=== PATIENT | male | born 1950 | race Caucasian/White ===

== ENCOUNTER 2024-04-09 13:15 | Emergency (ER) | payer OTHER ==
[~2024-04-09] VITALS: Ht 162.6 cm; Wt 73.0 kg
[2024-04-09 13:28] VITALS: O2SAT 98
[2024-04-09 14:25] LABS: BASOPHILS % 1.1 % (0.0-2.0); EOSINOPHILS % 3.4 % (0.0-5.0); HEMATOCRIT. 38.2 % (42.0-52.0); HEMOGLOBIN. 12.2 g/dL (14.0-18.0); LYMPHOCYTES % 21.3 % (20.0-50.0); MEAN CORPUSCULAR HEMOGLOBIN 27.6 pg (28.0-32.0); MEAN CORPUSCULAR HGB CONC 31.9 g/dL (31.0-37.0); MEAN CORPUSCULAR VOLUME 86.3 fL (80.0-94.0); MEAN PLATELET VOLUME 8.7 fl (7.4-10.4); NEUTROPHILS % 65.2 % (40.0-76.0); PLATELET 305 x1000/uL (130-400); RED BLOOD CELL COUNT 4.43 mill/uL (4.7-6.1); RED CELL DISTRIBUTION WIDTH 17.8 % (11.6-14.6); WHITE BLOOD COUNT 6.5 x1000/uL (4.5-11.0)
[2024-04-09 14:26] LABS: CHLORIDE 107 mEq/L (98-107); POTASSIUM 5.1 mEq/L (3.5-5.1); SODIUM 141 mEq/L (136-145)
[2024-04-09 14:27] LABS: CARBON DIOXIDE 25 mEq/L (21-32)
[2024-04-09 14:28] LABS: CALCIUM 9.8 mg/dL (8.7-10.4)
[2024-04-09 14:33] LABS: CREATININE 1.1 mg/dL (0.6-1.3); GLUCOSE 119 mg/dL (70-105); TROPONIN I HIGH SENSITIVITY 14 ng/L (3.0-53); UREA NITROGEN BLOOD 23 mg/dL (9-23)
[2024-04-09 16:22] VITALS: BP 126/97; PULSE 102; RESP 18; TEMP 36.9; O2SAT 99
== END 2024-04-09 16:57 | disposition short-term general hospital (02) ==
LOC: ER 13:15
DX: I11.0 Hypertensive heart disease with heart failure (principal); I50.9 Heart failure, unspecified; E11.9 Type 2 diabetes mellitus without complications; I48.91 Unspecified atrial fibrillation; I49.3 Ventricular premature depolarization; Z86.73 Personal history of transient ischemic attack (TIA), and cerebral infarction without residual deficits
CPT/HCPCS: 80048; 85025; 84484; 36415; 71045; 93005; 99285; Z7610 ×2; A4606